=== PATIENT | male | born 1975 | race Caucasian/White ===

== ENCOUNTER 2016-11-07 01:05 | Emergency (ER) | payer MEDICAID ==
[2016-11-07] MEDS ORDERED: KETOROLAC 15 MG/1 ML SDV IVP ONE (01:39)
[2016-11-07] MEDS ORDERED: ONDANSETRON 4 MG/2 ML VIAL IVP ONE (01:39)
[2016-11-07] MEDS ORDERED: LIDOCAINE 1% 100 MG in NS 100 ML IV ONE (01:47)
[2016-11-07] MEDS ORDERED: NS 1,000 ML IV ONE ×2 (01:47)
[2016-11-07 01:52] LABS: % IMMATURE GRANULYOCYTES 0.4 % (0.0-1.1); ABSOLUTE IMMATURE GRANULOCYTES 0.05 10^3/uL (0.00-0.10); ADD DIFF? NO; ADD MORPH? NO; ADD SCAN? NO; ATYPICAL LYMPHOCYTE FLAG 0 (0-99); FRAGMENT RBC FLAG 0 (0-99); HEMATOCRIT 46.8 % (40.0-51.0); HEMOGLOBIN 16.7 g/dL (13.7-17.5); LEFT SHIFT FLG 0 (0-99); LIPEMIA HEMOLYSIS FLAG 90 (0-99); MEAN CELL HEMOGLOBIN 30.4 pg (27.9-34.1); MEAN CELL HEMOGLOBIN CONCENTR. 35.7 g/dL (32.4-36.7); MEAN CELL VOLUME 85.1 fL (81.5-99.8); MEAN PLATELET VOLUME 9.9 fL (8.7-11.7); PLATELET CLUMPS FLAG 0 (0-99); PLATELET COUNT 195 10^3/uL (150-400); RED CELL DISTRIBUTION WIDTH 11.9 % (11.5-15.2)
[2016-11-07 02:02] LABS: COLOR YELLOW; LEUKOCYTE ESTERASE,URINE NEGATIVE (NEGATIVE); NITRITE,URINE NEGATIVE (NEGATIVE)
[2016-11-07 02:03] LABS: ANION GAP 14 mEq/L (8-16); CALCIUM 9.9 mg/dL (8.5-10.4); CARBON DIOXIDE 21 mEq/l (22-31); CHLORIDE 106 mEq/L (97-110); GLOMERULAR FILTRATION RATE > 60; GLUCOSE 102 mg/dL (70-100); POTASSIUM 4.2 mEq/L (3.5-5.2); SODIUM 141 mEq/L (134-144)
--- NOTE | 2016-11-07 05:13 | EDPHY ---
H & P Stated Complaint: ABDOMINAL PAIN Time Seen by Provider: 11/07/16 01:14 HPI/ROS: HPI The patient presents with abdominal pain which has been present for the last several hours and began while eating dinner. The pain is in his lower abdomen, is intermittent and feels like a cramping sort of pain to him. It is severe when it is present. He has developed vomiting since being in the emergency room. He has no prior history of similar symptoms. At home he took Zantac without any improvement in his symptoms. He has not had a fever. He denies any diarrhea or constipation. He denies any sick contacts. REVIEW OF SYSTEMS Constitutional: No fever, no chills. Eyes: No discharge. ENT: No sore throat. Cardiovascular: No chest pain, no palpitations. Respiratory: No cough, no shortness of breath. Gastrointestinal: See HPI Genitourinary: No hematuria. Musculoskeletal: No back pain. Skin: No rashes. Neurological: No headache. 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 Soc Hx: Lives at home with his partner PHYSICAL General Appearance: Alert, no distress Eyes: Pupils equal and round no pallor or injection ENT, Mouth: Mucous membranes moist Respiratory: There are no retractions, lungs are clear to auscultation Cardiovascular: Regular rate and rhythm Gastrointestinal: Abdomen is soft with mild tenderness in the lower quadrants Neurological: A&O, moves all extremities Skin: Warm and dry, no rashes Musculoskeletal: Neck is supple non tender Extremities: symmetrical, full range of motion Psychiatric: Patient is oriented X 3, there is no agitation Source: Patient Exam Limitations: No limitations - Personal History Current Tetanus/Diphtheria Vaccine: No - Medical/Surgical History Hx Asthma: No Hx Chronic Respiratory Disease: No Hx Diabetes: No Hx Cardiac Disease: No Hx Renal Disease: No Hx Cirrhosis: No Hx Alcoholism: No Hx HIV/AIDS: No Hx Splenectomy or Spleen Trauma: No Other PMH: NO PMH - Social History Smoking Status: Never smoked Constitutional: Initial Vital Signs Temperature (C) 36.7 C 11/07/16 01:09 Heart Rate 62 11/07/16 01:09 Respiratory Rate 22 H 11/07/16 01:09 Blood Pressure 148/91 H 11/07/16 01:09 O2 Sat (%) 97 11/07/16 01:09 O2 Delivery Mode Room Air Allergies/Adverse Reactions: No Known Allergies Allergy (Unverified 11/07/16 01:10) Home Medications: Medication Instructions Recorded NK [No Known Home Meds] 11/07/16 Medical Decision Making Differential Diagnosis: This is a 41-year-old male who is healthy who presents with several hours of lower abdominal pain associated with vomiting. Differential diagnosis includes ureterolithiasis, appendicitis, colitis, gastritis. In the emergency department, the patient was given IV fluids for vomiting, Zofran, Toradol, lidocaine with complete resolution in his symptoms. Labs were checked and were unremarkable except for a mild leukocytosis. Ultrasound was performed showing no visualized appendix was, no nephrolithiasis or hydronephrosis. 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 We discussed pros and cons of CT scan and we have decided to do watchful waiting instead of doing a CT scan today. He will return if his pain is worse in any way, develops vomiting or fever. The cause of his pain could be gastroenteritis versus gastritis possibly. That we cannot rule out acute appendicitis. - Data Points Laboratory Results: Laboratory Results 11/07/16 01:37 11/07/16 01:37 11/07/16 11/07/16 11/07/16 01:37 01:37 01:34 WBC 13.12 10^3/uL H 10^3/uL (3.80-9.50) RBC 5.50 10^6/uL 10^6/uL (4.40-6.38) Hgb 16.7 g/dL g/dL (13.7-17.5) Hct 46.8 % % (40.0-51.0) MCV 85.1 fL fL (81.5-99.8) MCH 30.4 pg pg (27.9-34.1) MCHC 35.7 g/dL g/dL (32.4-36.7) RDW 11.9 % % (11.5-15.2) Plt Count 195 10^3/uL 10^3/uL (150-400) MPV 9.9 fL fL (8.7-11.7) Neut % (Auto) 86.1 % H % (39.3-74.2) Lymph % (Auto) 8.5 % L % (15.0-45.0) [place] % (Auto) 4.5 % % (4.5-13.0) Eos % (Auto) 0.2 % L % (0.6-7.6) Baso % (Auto) 0.3 % % (0.3-1.7) Nucleat RBC Rel Count 0.0 % % (0.0-0.2) Absolute Neuts (auto) 11.31 10^3/uL H 10^3/uL (1.70-6.50) Absolute Lymphs (auto) 1.11 10^3/uL 10^3/uL (1.00-3.00) Absolute Monos (auto) 0.59 10^3/uL 10^3/uL (0.30-0.80) Absolute Eos (auto) 0.02 10^3/uL L 10^3/uL (0.03-0.40) Absolute Basos (auto) 0.04 10^3/uL 10^3/uL (0.02-0.10) Absolute Nucleated RBC 0.00 10^3/uL 10^3/uL (0-0.01) Immature Gran % 0.4 % % (0.0-1.1) Immature Gran # 0.05 10^3/uL 10^3/uL (0.00-0.10) Sodium 141 mEq/L mEq/L (134-144) Potassium 4.2 mEq/L mEq/L (3.5-5.2) Chloride 106 mEq/L mEq/L (97-110) Carbon Dioxide 21 mEq/l L mEq/l (22-31) Anion Gap 14 mEq/L mEq/L (8-16) BUN 13 mg/dL mg/dL (7-23) Creatinine 1.0 mg/dL mg/dL (0.7-1.3) Estimated GFR > 60 Glucose 102 mg/dL H mg/dL (70-100) Calcium 9.9 mg/dL mg/dL (8.5-10.4) Urine Color YELLOW Urine Appearance CLEAR Urine pH 6.0 (5.0-7.5) Ur Specific [place] 1.027 (1.002-1.030) Urine Protein NEGATIVE (NEGATIVE) Urine Ketones 2+ H (NEGATIVE) Urine Blood NEGATIVE (NEGATIVE) Urine Nitrate NEGATIVE (NEGATIVE) Urine Bilirubin NEGATIVE (NEGATIVE) Urine Urobilinogen 2.0 EU H EU (0.2-1.0) Ur Leukocyte Esterase NEGATIVE (NEGATIVE) Urine Glucose NEGATIVE (NEGATIVE) Medications Given: Discontinued Medications Sodium Chloride (Ns) 1,000 mls @ 0 mls/hr IV ONCE ONE; Wide Open PRN Reason: Protocol Stop: 11/07/16 01:48 Last Admin: 11/07/16 01:55 Dose: 1,000 mls Sodium Chloride (Ns) 1,000 mls @ 0 mls/hr IV ONCE ONE; Wide Open PRN Reason: Protocol Stop: 11/07/16 01:48 Last Admin: 11/07/16 01:56 Dose: 1,000 mls Lidocaine HCl 100 mg/ Sodium (Chloride) 110 mls @ 600 mls/hr IV EDNOW ONE Stop: 11/07/16 01:57 Last Admin: 11/07/16 02:22 Dose: 110 mls Ketorolac Tromethamine (Toradol) 15 mg IVP EDNOW ONE Stop: 11/07/16 01:40 Last Admin: 11/07/16 01:43 Dose: 15 mg Ondansetron HCl (Zofran) 4 mg IVP EDNOW ONE Stop: 11/07/16 01:40 Last Admin: 11/07/16 01:43 Dose: 4 mg Departure - Departure Disposition: Home, Routine, Self-Care Clinical Impression: Abdominal pain Qualifiers: Abdominal location: generalized Qualified Code(s): R10.84 - Generalized abdominal pain Vomiting Qualifiers: Vomiting type: unspecified Vomiting Intractability: non-intractable Nausea presence: with nausea Qualified Code(s): R11.2 - Nausea with vomiting, unspecified Condition: Good Instructions: Acute Abdominal Pain (ED) Additional Instructions: Please return to the emergency room if your worse in any way, i.e. developed worsening pain, fever, vomiting. Referrals: NONE *PRIMARY CARE P,. [Primary Care Provider] - As per Instructions
[2016-11-07 05:35] VITALS: BP 110/76; PULSE 59; RESP 14; TEMP 97.9; O2SAT 95
== END 2016-11-07 05:33 | disposition home or self-care (01) ==
DX: R10.84 Generalized abdominal pain (principal); R11.2 Nausea with vomiting, unspecified; E86.9 Volume depletion, unspecified
CPT/HCPCS: 96365; J1885; J2405

== ENCOUNTER → 2016-12-17 | Outpatient (CLI) | payer MEDICAID | LOC: FIMAGING 16:05 | PROVIDERS: ATTEND Family Medicine | DX: M79.645 Pain in left finger(s) (principal) ==